=== PATIENT | female | born 1985 | race Two or more races ===

== ENCOUNTER 2024-09-08 23:08 | Emergency (ER) | payer BC ==
[~2024-09-08] VITALS: Ht 152.4 cm; Wt 107.2 kg
[2024-09-08 23:55] LABS: Urine Bacteria None Seen /hpf (None Seen)
[2024-09-08 23:58] LABS: Basophils # (auto) 0 10 ^3/uL (0-0.2); Basophils % (auto) 0.5 % (0.0-2.0); Chloride 107 mmol/L (98-107); Eosinophils # (auto) 0.1 10 ^3/uL (0-0.8); Eosinophils % (auto) 1.1 % (0.0-7.0); Hematocrit 30.5 % (36.0-46.0); Hemoglobin 9.4 g/dL (12.2-16.2); Lymphocytes % (auto) 22.5 % (10.0-50.0); Mean Corpuscular Hemoglobin 22.2 pg (28.0-32.0); Mean Corpuscular Hgb Conc. 30.7 g/dL (32.0-36.0); Mean Corpuscular Volume 72.3 fL (80.0-100.0); Monocytes # (auto) 0.7 10 ^3/uL (0-1.3); Monocytes % (auto) 7.2 % (0.0-12.0); Neutrophils # (auto) 6.3 10 ^3/uL (1.6-8.6); Neutrophils % (auto) 68.7 % (37.0-80.0); Nucleated Red Blood Cells % 0.1 %; Platelet Count (auto) 500 10^3/uL (140-450); Potassium 3.8 mmol/L (3.5-5.1); Red Blood Cells 4.22 10^6/uL (4.0-5.20); Red Cell Distribution Width 17.6 % (11.8-14.3); Sodium 137 mmol/L (136-145); White Blood Cell 9.1 10^3/uL (4.4-10.8)
[2024-09-08 23:59] LABS: Anion Gap 4 (5-15); Carbon Dioxide 26 mmol/L (20-31)
[2024-09-09] LABS: Calcium 9.8 mg/dL (8.7-10.4)
[2024-09-09 00:04] LABS: BUN/Creatinine Ratio 11.9 (10.0-20.0); Blood Urea Nitrogen 8 mg/dL (9-23); Glucose 113 mg/dL (74-106)
[2024-09-09 00:14] LABS: Urine Blood Negative /uL (Negative); Urine Clarity Clear (Clear); Urine Color Light-Yellow (Yellow); Urine Protein, UAD Negative (Negative); Urine Specific Gravity 1.015 (1.001-1.035); Urine Urobilinogen Normal (Negative); Urine WBC 4 /hpf (0 - 5)
--- NOTE | 2024-09-09 00:44 | ED.PDOC ---
GI ASSESSMENT HPI Comments 39-year-old female presents with a chief complaint of abdominal pain x 3 days with associated urinary frequency. Patient states that her abdominal pain is localized to her LLQ/pelvic region, non-radiating, describes as sharp, and rates her pain a 7/10 intermittently. Patient denies any fever, nausea, vomiting, dysuria or diarrhea. Patient denies any injuries or trauma prior to onset of symptoms. Patient also states that she has urinary frequency, but denies dysuria, hematuria, or vaginal bleeding. No other symptoms or modifying factors present at this time. Patient acknowledges she has had this pain intermittently for months, however it has been worse over the past 3 days. Chief Complaint: Abdominal Pain Time Seen by MD: 00:28 Primary Care Provider: None Reviewed Notes: Medications, Allergies Allergies: Coded Allergies: NO KNOWN ALLERGIES (Unverified , 09/08/24) Home Meds Active Scripts Ibuprofen Micronized (Ibuprofen) 800 Mg Tab, 800 MG PO Q8HP PRN, #30 TAB Prov:NICO KELLY MD 09/09/24 Information Source: Patient Mode of Arrival: Ambulatory Timing: Days Duration: Since onset Prehospital treatment: None Quality: Sharp Vomitus: None Stool: Normal Severity: Moderate Recent: None Recent Hx of: None Pain Location: LLQ, Suprapubic Past Medical History Past Medical History (Other): Low Iron Surgical History: TANK CHARGER History: Denies all TANK CHARGER Hx Family History Family History: Reviewed,noncontributory to illness Social History Smoker: Non-Smoker Alcohol: Denies ETOH Use Drugs: Denies Drug Use Lives In: Home Constitutional: denies: chills, diaphoresis, fatigue, fever, malaise, sweats, weakness, others EENTM: denies: blurred vision, double vision, ear bleeding, ear discharge, ear drainage, ear pain, ear ringing, eye pain, eye redness, hearing loss, mouth pain, mouth swelling, nasal discharge, nose bleeding, nose congestion, nose pain, photophobia, tearing, throat pain, throat swelling, voice changes, others Respiratory: denies: cough, hemoptysis, orthopnea, SOB at rest, shortness of breath, SOB with excertion, stridor, wheezing, others Cardiovascular: denies: chest pain, dizzy spells, diaphoresis, Dyspnea on exertion, edema, irregular heart beat, left arm pain, lightheadedness, palpitations, PND, syncope, others Gastrointestinal: reports: abdominal pain; denies: abdomen distended, blood streaked bowels, constipated, diarrhea, dysphagia, difficulty swallowing, hematemesis, melena, nausea, poor appetite, poor fluid intake, rectal bleeding, rectal pain, vomiting, others Genitourinary: reports: frequency; denies: abnormal vagina bleeding, burning, dyspareunia, dysuria, flank pain, hematuria, incontinence, pain, , vagina discharge, urgency, others Neurological: denies: dizziness, fainting, headache, left sided numbness, left sided weakness, numbness, paresthesia, pre-existing deficit, right sided numbness, right sided weakness, seizure, speech problems, tingling, tremors, weakness, others Musculoskeletal: denies: back pain, gout, joint pain, joint swelling, muscle pain, muscle stiffness, neck pain, others Integumetry: denies: bruises, change in color, change in hair/nails, dryness, laceration, lesions, lumps, rash, wounds, others Allergic/Immunocompromised: denies: Difficulty Healing, Frequent Infections, Hives, Itching, others Hematologic/Lymphatic: denies: anemia, blood clots, easy bleeding, easy bruising, swollen glands, others Endocrine: denies: excessive hunger, excessive sweating, excessive thirst, excessive urination, flushing, intolerance to cold, intolerance to heat, unexplained weight gain, unexplained weight loss, others Psychiatric: denies: anxiety, bipolar disorder, depression, hopeless, panic disorder, schizophrenia, sleepless, suicidal, others All Other Systems: Reviewed and Negative Physical Exam General Appearance: No Apparent Distress HEENT: Normal ENT Inspection Neck: Full Range of Motion, Normal Inspection Respiratory: Lungs Clear, No Accessory Muscle Use, No Respiratory Distress, Nor mal Breath Sounds Cardiovascular: No Edema, No JVD, Regular Rate/Rhythm Breast Exam: Deferred Gastrointestinal: Soft, Suprapubic (Left suprapubic tenderness to palpation), Tenderness Genitalia: Deferred Pelvic: Deferred Rectal: Deferred Extremities: Normal inspection, Normal range of motion, Non-tender, No pedal edema Neurologic: Alert, No Motor Deficits, Normal Affect, Normal Mood, No Sensory Deficits Cerebellar Function: NOT DONE Reflexes: NOT DONE Skin: Dry, Normal Color, Warm Lymphatic: NOT DONE Was a procedure done? Was a procedure done?: No GI differential Dx Differential Diagnosis: Bowel Obstruction, Constipation, Diverticular disease, Gastroenteritis, Inflammatory BD, Ischemic Bowel, Urinary Obstruction, UTI, Electrolyte Imbalance, , Bacterial, Parasitic, Viral, Impaction, Kidney Stone Other Differential Diagnosis Ovarian cyst, ovarian torsion, mass lesion, among others X-Ray, Labs, Meds, VS Vital Signs Date Time Temp Pulse Resp B/P (MAP) Pulse Ox O2 Delivery O2 Flow Rate FiO2 09/08/24 23:16 99.5 95 18 163/92 (115) 100 Lab Test 09/08/24 23:53 09/08/24 23:38 Range/Units Urine Color Light-yellow Yellow Urine Clarity Clear Clear Urine pH 7.0 5.0-9.0 Urine Specific [place] 1.015 1.001-1.035 Urine Protein Negative Negative Urine Ketones Negative Negative Urine Blood Negative Negative /uL Urine Nitrite Negative Negative Urine Bilirubin Negative Negative Urine Urobilinogen Normal Negative mg/dL Urine Leukocyte Esterase Negative Negative /uL Urine RBC 1 0 - 4 /hpf Urine WBC 4 0 - 5 /hpf Urine Squamous Epithelial Cells Few <5 /hpf Urine Bacteria None seen None Seen /hpf Urine Glucose Normal Normal mg/dL White Blood Count 9.1 4.4-10.8 10^3/uL Red Blood Count 4.22 4.0-5.20 10^6/uL Hemoglobin 9.4 L 12.2-16.2 g/dL Hematocrit 30.5 L 36.0-46.0 % Mean Corpuscular Volume 72.3 L 80.0-100.0 fL Mean Corpuscular Hemoglobin 22.2 L 28.0-32.0 pg Mean Corpuscular Hemoglobin Concent 30.7 L 32.0-36.0 g/dL Red Cell Distribution Width 17.6 H 11.8-14.3 % Platelet Count 500 H 140-450 10^3/uL Mean Platelet Volume 6.8 L 6.9-10.8 fL Neutrophils (%) (Auto) 68.7 37.0-80.0 % Lymphocytes (%) (Auto) 22.5 10.0-50.0 % Monocytes (%) (Auto) 7.2 0.0-12.0 % Eosinophils (%) (Auto) 1.1 0.0-7.0 % Basophils (%) (Auto) 0.5 0.0-2.0 % Neutrophils # (Auto) 6.3 1.6-8.6 10 ^3/uL Lymphocytes # (Auto) 2.0 0.4-5.4 10 ^3/uL Monocytes # (Auto) 0.7 0-1.3 10 ^3/uL Eosinophils # (Auto) 0.1 0-0.8 10 ^3/uL Basophils # (Auto) 0 0-0.2 10 ^3/uL Nucleated Red Blood Cells 0.1 % Sodium Level 137 136-145 mmol/L Potassium Level 3.8 3.5-5.1 mmol/L Chloride Level 107 98-107 mmol/L Carbon Dioxide Level 26 20-31 mmol/L Anion Gap 4 L 5-15 Blood Urea Nitrogen 8 L 9-23 mg/dL Creatinine 0.67 0.550-1.02 mg/dL Glomerular Filtration Rate Calc 113 >90 mL/min BUN/Creatinine Ratio 11.9 10.0-20.0 Serum Glucose 113 H 74-106 mg/dL Calcium Level 9.8 8.7-10.4 mg/dL Beta HCG, Quantitative 0.5 L 1.5-4.2 mIU/mL PROCEDURE(s): ABPL - CT AB PEL WO CON-NO ORAL OR IV REASON: L suprapubic pain ORDER NUMBER(s): [id number], ACCESSION NUMBER(s): [id number] Examination: ABPL CLINICAL INDICATION: L suprapubic pain COMPARISON: None. CONTRAST USED: None. TECHNIQUE: A plain CT study of the abdomen and pelvis is performed. The ex amination was performed with [address] scan is done according to ALARA (As Low as Reasonably Achievable). Multiplanar reconstructions were obtained. FINDINGS: The lack of intravenous contrast limits evaluation of solid organ and other structures, differentiation/separation and intraluminal evaluation of vessels and ureter from surrounding structures, and evaluation of organ or abnormal enhancement. CT ABDOMEN: Visualized lower thorax: The evaluation of lung bases demonstrates no focal infiltrates or pleural effusion. Unenhanced liver: The liver is normal in size. There is no intrahepatic biliary radicle dilatation. Gallbladder: The gallbladder is normal and reveals no intrinsic abnormality. The common bile duct is not dilated. Unenhanced pancreas: The pancreas is normal in size and shape. No focal lesion is seen within. The peripancreatic fat planes are normal. Unenhanced spleen: The spleen is normal in size and does not show any focal abnormality. Retroperitoneum: Both adrenal glands are normal in size and morphology in this unenhanced CT scan. There is no significant retroperitoneal lymphadenopathy. The kidneys are normal in size with no hydronephrosis or renal calculi. Vessels: The aorta, IVC and the mesenteric vessels cannot be commented in this unenhanced CT scan. Stomach and bowel: Small fat filled umbilical hernia. The bowel loops are unremarkable. There is no ascites. Skeletal system: Sacralization of L5 vertebra on the right side. Otherwise, the visualized thoracolumbar vertebrae and the pelvic bones are unremarkable. CT PELVIS: Appendix: The appendix is unremarkable in appearance. Colon: The ascending, transverse, descending, sigmoid colon and rectum are unremarkable. Urinary bladder: The urinary bladder is partially distended. Pelvic organs: The uterus is normal for age. Well-defined hypodense cystic lesion of approximate size 2.4 x 3 x 2.1 cm noted in the pelvis on the left side, likely left ovarian cystic lesion. Well-defined soft tissue density lesion of approximate size 2.8 x 3.1 x 2.5 cm noted in the cervical canal. Advised further evaluation with MRI pelvis without contrast. No right adnexal mass. No significant pelvic lymphadenopathy is identified. No abnormal fluid collection is seen. IMPRESSION: 1. Well-defined hypodense cystic lesion in the pelvis on the left side, likely left ovarian cystic lesion. 2. Well-defined soft tissue density lesion of approximate size 2.8 x 3.1 x 2.5 cm noted in the cervical canal. 3. Advised further evaluation with MRI pelvis without contrast. 4. No radiopaque calculus in both kidneys, ureters or urinary bladder. 5. No hydronephrosis or hydroureter on either side in current study. 6. No abdominal adenopathy. 7. No ascites. 8. No free air or inflammatory changes. 7. Chronic and/or ancillary findings as described above. Electronically Signed 09/09/2024 02:25 Steven Delacruz EDURE(s): PELUS - PELVIC REASON: LLQ PAIN ORDER NUMBER(s): [id number], ACCESSION NUMBER(s): [id number] Examination: PELUS - TA and TV CLINICAL INDICATION: LLQ pain COMPARISON: None. TECHNIQUE: Transabdominal and transvaginal ultrasound was performed. FINDINGS: Uterus: The uterus is anteverted and enlarged, measuring 11.9 x 4.5 x 5.4 cm. Homogeneous echotexture with the presence of multiple fibroids: Left fibroid measuring 1.5 x 1.8 x 1.8 cm. Larger fibroid on the left side measuring 3.6 x 3.2 x 3.0 cm. Endometrial thickness is 16.5 mm, mildly thickened. A solid mass is identified within the cervix with internal vascularity. Presence of a few nabothian cysts within the cervix. Cervix: Within normal limits except for the solid mass described above. Ovaries: Right Ovary: Measures 1.7 x 2.3 x 1.5 cm with a volume of 3.1 mL. Left Ovary: Measures 2.4 x 1.7 x 2.1 cm with a volume of 4.34 mL. Both ovaries are within normal limits, with no evidence of adnexal mass. Free Fluid: No free fluid is seen in the pelvis. IMPRESSION: 1. Enlarged uterus with multiple fibroids, the largest measuring 3.6 x 3.2 x 3.0 cm. 2. Mildly thickened endometrium measuring 16.5 mm. 3. Solid mass within the cervix with internal vascularity, suggestive of a possible cervical lesion. Suggest further evaluation with MRI of the pelvis without and with intravenous contrast and Pap smear correlation. 4. Presence of multiple nabothian cysts. 5. Both ovaries are within normal limits with no adnexal masses. 6. No evidence of free fluid in the pelvis. Electronically Signed 09/09/2024 02:39 Steven Delacruz X-Ray, Labs, Meds, VS Comment 39-year-old female with a history of low iron complaining of left suprapubic pain Vitals remarkable for BP 163/92 Exam remarkable for left suprapubic tenderness to palpation CT abdomen and pelvis: IMPRESSION: 1. Well-defined hypodense cystic lesion in the pelvis on the left side, likely left ovarian cystic lesion. 2. Well-defined soft tissue density lesion of approximate size 2.8 x 3.1 x 2.5 cm noted in the cervical canal. 3. Advised further evaluation with MRI pelvis without contrast. 4. No radiopaque calculus in both kidneys, ureters or urinary bladder. 5. No hydronephrosis or hydroureter on either side in current study. 6. No abdominal adenopathy. 7. No ascites. 8. No free air or inflammatory changes. 7. Chronic and/or ancillary findings as described above. Pelvic ultrasound: Preliminarily reported by technologist Doppler arterial flow seen to bilateral ovaries Enlarged uterus seen with multiple solid and cystic masses Solid mass at cervix with intravascularly 80 Thickened endometrium Left ovarian simple cyst IMPRESSION: 1. Enlarged uterus with multiple fibroids, the largest measuring 3.6 x 3.2 x 3.0 cm. 2. Mildly thickened endometrium measuring 16.5 mm. 3. Solid mass within the cervix with internal vascularity, suggestive of a possible cervical lesion. Suggest further evaluation with MRI of the pelvis without and with intravenous contrast and Pap smear correlation. 4. Presence of multiple nabothian cysts. 5. Both ovaries are within normal limits with no adnexal masses. 6. No evidence of free fluid in the pelvis. Patient declined any pain medications in the ED, stating she was not in severe pain, just would like to know what was causing the pain. Hospitalization was considered, however the patient has good follow-up with her OBGYN, and she does not want to be hospitalized. She appears stable for outpatient follow-up with her OB for referral for MRI of the pelvis and further evaluation. Rx ibuprofen Time of 1ST Reevaluation: 00:58 Reevaluation 1ST: Unchanged Time of 2ND Reevaluation: 02:46 Reevaluation 2ND: Unchanged Patient Education/Counseling: Diagnosis, Treatment, Prognosis Family Education/Counseling: Diagnosis, Treatment, Prognosis Departure 1 Departure Time of Disposition: 02:46 Impression: Primary Impression: Left ovarian cyst Additional Impression: Cervical mass Disposition: 01 HOME / SELF CARE / HOMELESS Condition: Stable Additional Instructions: Follow-up with your OBGYN in 1-2 days for referral for MRI of the pelvis and further evaluation. e-Prescriptions Ibuprofen Micronized (Ibuprofen) 800 Mg Tab 800 MG PO Q8HP PRN, #30 TAB Prov: NICO KELLY MD 09/09/24 Discharged With: Relative Critical Care Note Critical Care Time?: No Stability Stability form required: No Heart Score Heart Score: Heart Score Response (Comments) Value History N/A 0 EKG N/A 0 Age N/A 0 Risk Factors N/A 0 Troponin N/A 0 Total 0 I personally scribed for NICO KELLY MD ([email or web address]) on 09/09/24 at 00:44. Electronically submitted by Speedy Worthington ([email or web address]). NICO KELLY MD Sep 09, 2024 00:44
--- NOTE | 2024-09-09 02:33 | DVH ---
Examination: ABPL CLINICAL INDICATION: L suprapubic pain COMPARISON: None. CONTRAST USED: None. TECHNIQUE: A plain CT study of the abdomen and pelvis is performed. The examination was performed w ith [address] scan is done according to ALARA (As Low as Reasonably Achievable). Multipl leslye reconstructions were obtained. FINDINGS: The lack of intravenous contrast limits evaluation of solid organ and other structures, differentiati on/separation and intraluminal evaluation of vessels and ureter from surrounding structures, and eval uation of organ or abnormal enhancement. CT ABDOMEN: Visualized lower thorax: The evaluation of lung bases demonstrates no focal infiltrates or pleural e ffusion. Unenhanced liver: The liver is normal in size. There is no intrahepatic biliary radicle dilatation. Gallbladder: The gallbladder is normal and reveals no intrinsic abnormality. The common bile duct is not dilated. Unenhanced pancreas: The pancreas is normal in size and shape. No focal lesion is seen within. The p eripancreatic fat planes are normal. Unenhanced spleen: The spleen is normal in size and does not show any focal abnormality. Retroperitoneum: Both adrenal glands are normal in size and morphology in this unenhanced CT scan. There is no significant retroperitoneal lymphadenopathy. The kidneys are normal in size with no hydro nephrosis or renal calculi. Vessels: The aorta, IVC and the mesenteric vessels cannot be commented in this unenhanced CT scan. Stomach and bowel: Small fat filled umbilical hernia. The bowel loops are unremarkable. There is no a scites. Skeletal system: Sacralization of L5 vertebra on the right side. Otherwise, the visualized thoracolum bar vertebrae and the pelvic bones are unremarkable. CT PELVIS: Appendix: The appendix is unremarkable in appearance. Colon: The ascending, transverse, descending, sigmoid colon and rectum are unremarkable. Urinary bladder: The urinary bladder is partially distended. Pelvic organs: The uterus is normal for age. Well-defined hypodense cystic lesion of approximate size 2.4 x 3 x 2.1 cm noted in the pelvis on the left side, likely left ovarian cystic lesion. Well-defined soft tissue density lesion of approximate size 2.8 x 3.1 x 2.5 cm noted in the cervical canal. Advised further evaluation with MRI pelvis without contrast. No right adnexal mass. No significant pelvic lymphadenopathy is identified. No abnormal fluid collection is seen. IMPRESSION: 1. Well-defined hypodense cystic lesion in the pelvis on the left side, likely left ovarian cystic l esion. 2. Well-defined soft tissue density lesion of approximate size 2.8 x 3.1 x 2.5 cm noted in the cervi saeid canal. 3. Advised further evaluation with MRI pelvis without contrast. 4. No radiopaque calculus in both kidneys, ureters or urinary bladder. 5. No hydronephrosis or hydroureter on either side in current study. 6. No abdominal adenopathy. 7. No ascites. 8. No free air or inflammatory changes. 7. Chronic and/or ancillary findings as described above. Electronically Signed 09/09/2024 02:25 Steven Delacruz
[2024-09-09] MEDS ORDERED: IBUP-1455 PO (02:47)
--- NOTE | 2024-09-09 02:47 | DVH ---
Examination: PELUS - TA and TV CLINICAL INDICATION: LLQ pain COMPARISON: None. TECHNIQUE: Transabdominal and transvaginal ultrasound was performed. FINDINGS: Uterus: The uterus is anteverted and enlarged, measuring 11.9 x 4.5 x 5.4 cm. Homogeneous echotextu re with the presence of multiple fibroids: Left fibroid measuring 1.5 x 1.8 x 1.8 cm. Larger fibroid on the left side measuring 3.6 x 3.2 x 3.0 cm. Endometrial thickness is 16.5 mm, mildly thickened. A solid mass is identified within the cervix with internal vascularity. Presence of a few nabothian cysts within the cervix. Cervix: Within normal limits except for the solid mass described above. Ovaries: Right Ovary: Measures 1.7 x 2.3 x 1.5 cm with a volume of 3.1 mL. Left Ovary: Measures 2.4 x 1.7 x 2.1 cm with a volume of 4.34 mL. Both ovaries are within normal limits, with no evidence of adnexal mass. Free Fluid: No free fluid is seen in the pelvis. IMPRESSION: 1. Enlarged uterus with multiple fibroids, the largest measuring 3.6 x 3.2 x 3.0 cm. 2. Mildly thickened endometrium measuring 16.5 mm. 3. Solid mass within the cervix with internal vascularity, suggestive of a possible cervical lesion. Suggest further evaluation with MRI of the pelvis without and with intravenous contrast and Pap sme ar correlation. 4. Presence of multiple nabothian cysts. 5. Both ovaries are within normal limits with no adnexal masses. 6. No evidence of free fluid in the pelvis. Electronically Signed 09/09/2024 02:39 Steven Delacruz
[2024-09-09 05:14] VITALS: BP 120/80; PULSE 80; RESP 16; TEMP 98.6; O2SAT 97
== END 2024-09-09 05:15 | disposition home or self-care (01) ==
LOC: ER 23:08 → EEVIPCON 23:08 → ER 09-09 05:15
DX: N83.202 Unspecified ovarian cyst, left side (principal); N88.8 Other specified noninflammatory disorders of cervix uteri; Z98.890 Other specified postprocedural states
CPT/HCPCS: 36415; 74176; 76830; 76856; 80048; 81001; 84702; 85025

== ENCOUNTER 2025-03-02 08:14 | Emergency (ER) | payer OTHER ==
[~2025-03-02] VITALS: Ht 152.4 cm; Wt 103.1 kg
[~2025-03-02 08:14] MED LIST: IBUP-1455 PO
[2025-03-02 08:56] VITALS: PULSE 103; RESP 18; O2SAT 100
[2025-03-02] MEDS: SODIUM CHLORIDE 0.9% 1,000 ML IV ONE (09:05)
--- NOTE | 2025-03-02 09:05 | ED.PDOC ---
History of Present Illness HPI Comments 39 year old female presents to the ED with a chief complaint of dizziness onset today (03/02/25) around 07:30. Patient states she was getting ready for work when she began experiencing double vision, dizziness, was trying to walk to her room and was not able to walk straight. Episode lasted about 5 minutes, upon assessment patient states symptoms have resolved. Patient has a PMHx uterine fibroids, anemia. States last LMP was about 12-14 days, longer than normal. Denies headache, dizziness, blurred vision, double vision, chest pain, shortness of breath, weakness, nausea, vomiting. No other symptoms or modifying factors present at this time. Chief Complaint: Dizziness Time Seen by MD: 08:50 Primary Care Provider: none Reviewed Notes: Medications, Allergies Allergies: Coded Allergies: NO KNOWN ALLERGIES (Unverified , 09/08/24) Home Meds Active Scripts Ibuprofen Micronized (Ibuprofen) 800 Mg Tab, 800 MG PO Q8HP PRN, #30 TAB Prov:NICO KELLY MD 09/09/24 Information Source: Patient Mode of Arrival: Ambulatory Severity: Moderate Timing: Hours Duration: Since onset Prehospital treatment: None Past Medical History PAST MEDICAL HISTORY: Anemia Surgical History: CAGE UNLOADER History: Denies all CAGE UNLOADER Hx, Uterine Fibroids Family History Family History: Reviewed,noncontributory to illness Social History Smoker: Non-Smoker Alcohol: Denies ETOH Use Drugs: Denies Drug Use Lives In: Home Constitutional: denies: chills, diaphoresis, fatigue, fever, malaise, sweats, weakness, others EENTM: reports: double vision; denies: blurred vision, ear bleeding, ear discharge, ear drainage, ear pain, ear ringing, eye pain, eye redness, hearing loss, mouth pain, mouth swelling, nasal discharge, nose bleeding, nose congestion, nose pain, photophobia, tearing, throat pain, throat swelling, voice changes, others Respiratory: denies: cough, hemoptysis, orthopnea, SOB at rest, shortness of breath, SOB with excertion, stridor, wheezing, others Cardiovascular: denies: chest pain, dizzy spells, diaphoresis, Dyspnea on exertion, edema, irregular heart beat, left arm pain, lightheadedness, palpitations, PND, syncope, others Gastrointestinal: denies: abdomen distended, abdominal pain, blood streaked bowels, constipated, diarrhea, dysphagia, difficulty swallowing, hematemesis, melena, nausea, poor appetite, poor fluid intake, rectal bleeding, rectal pain, vomiting, others Genitourinary: denies: abnormal vagina bleeding, burning, dyspareunia, dysuria, flank pain, frequency, hematuria, incontinence, pain, , vagina discharge, urgency, others Neurological: reports: dizziness; denies: fainting, headache, left sided numbness, left sided weakness, numbness, paresthesia, pre-existing deficit, right sided numbness, right sided weakness, seizure, speech problems, tingling, tremors, weakness, others Musculoskeletal: denies: back pain, gout, joint pain, joint swelling, muscle pain, muscle stiffness, neck pain, others Integumetry: denies: bruises, change in color, change in hair/nails, dryness, laceration, lesions, lumps, rash, wounds, others Allergic/Immunocompromised: denies: Difficulty Healing, Frequent Infections, Hives, Itching, others Hematologic/Lymphatic: denies: anemia, blood clots, easy bleeding, easy bruising, swollen glands, others Endocrine: denies: excessive hunger, excessive sweating, excessive thirst, excessive urination, flushing, intolerance to cold, intolerance to heat, unexplained weight gain, unexplained weight loss, others Psychiatric: denies: anxiety, bipolar disorder, depression, hopeless, panic disorder, schizophrenia, sleepless, suicidal, others All Other Systems: Reviewed and Negative Physical Exam General Appearance: No Apparent Distress, Normal HEENT: Normal ENT Inspection, Pharynx Normal, TMs Normal Neck: Full Range of Motion, Non-Tender, Normal, Normal Inspection Respiratory: Chest Non-Tender, Lungs Clear, No Accessory Muscle Use, No Respiratory Distress, Normal Breath Sounds Cardiovascular: No Edema, No JVD, No Murmur, No Gallop, Normal Peripheral Pulses, Regular Rate/Rhythm Breast Exam: Deferred Gastrointestinal: No Organomegaly, Non Tender, No Pulsatile Mass, Normal Bowel Sounds, Soft Genitalia: Deferred Pelvic: Deferred Rectal: Deferred Extremities: No calf tenderness, Normal capillary refill, Normal inspection, Normal range of motion, Non-tender, No pedal edema Musculoskeletal : Apperance: Normal Neurologic: Alert, secretary of state II-XII nml as Tested, No Motor Deficits, Normal Affect, Normal Mood, No Sensory Deficits Cerebellar Function: Normal Reflexes: Normal Skin: Dry, Normal Color, Warm Lymphatic: No Adenopathy Was a procedure done? Was a procedure done?: No Differential Dx Considerations may include: CVA, migraine, dehydration, electrolyte abnormality, symptomatic anemia X-Ray, Labs, Meds, VS Vital Signs Date Time Temp Pulse Resp B/P (MAP) Pulse Ox O2 Delivery O2 Flow Rate FiO2 03/02/25 08:56 103 18 100 Room Air* 0 21 03/02/25 08:55 98.7 103 18 161/83 (109) 100 98.7 03/02/25 08:29 97 03/02/25 08:27 98.3 91 19 159/92 (114) 97 98.3 Lab Test 03/02/25 09:53 03/02/25 08:53 03/02/25 08:43 03/02/25 08:22 Range/Units Troponin I High Sensitivity 9 8 </=34 ng/L White Blood Count 7.5 4.4-10.8 10^3/uL Red Blood Count 4.15 4.0-5.20 10^6/uL Hemoglobin 9.0 L 12.2-16.2 g/dL Hematocrit 28.9 L 36.0-46.0 % Mean Corpuscular Volume 69.5 L 80.0-100.0 fL Mean Corpuscular Hemoglobin 21.6 L 28.0-32.0 pg Mean Corpuscular Hemoglobin Concent 31.0 L 32.0-36.0 g/dL Red Cell Distribution Width 18.4 H 11.8-14.3 % Platelet Count 488 H 140-450 10^3/uL Mean Platelet Volume 6.7 L 6.9-10.8 fL Neutrophils (%) (Auto) 77.0 37.0-80.0 % Lymphocytes (%) (Auto) 17.9 10.0-50.0 % Monocytes (%) (Auto) 4.2 0.0-12.0 % Eosinophils (%) (Auto) 0.6 0.0-7.0 % Basophils (%) (Auto) 0.3 0.0-2.0 % Neutrophils # (Auto) 5.8 1.6-8.6 10 ^3/uL Lymphocytes # (Auto) 1.4 0.4-5.4 10 ^3/uL Monocytes # (Auto) 0.3 0-1.3 10 ^3/uL Eosinophils # (Auto) 0 0-0.8 10 ^3/uL Basophils # (Auto) 0 0-0.2 10 ^3/uL Nucleated Red Blood Cells 0.1 % Sodium Level 138 136-145 mmol/L Potassium Level 3.7 3.5-5.1 mmol/L Chloride Level 104 98-107 mmol/L Carbon Dioxide Level 24 20-31 mmol/L Anion Gap 10 5-15 Blood Urea Nitrogen 11 9-23 mg/dL Creatinine 0.62 0.550-1.02 mg/dL Glomerular Filtration Rate Calc 115 >90 mL/min BUN/Creatinine Ratio 17.7 10.0-20.0 Serum Glucose 104 74-106 mg/dL Calcium Level 9.7 8.7-10.4 mg/dL Urine Color Light-yellow Yellow Urine Clarity Clear Clear Urine pH 6.5 5.0-9.0 Urine Specific [place] 1.005 1.001-1.035 Urine Protein Negative Negative Urine Ketones Negative Negative Urine Blood 1+ H Negative /uL Urine Nitrite Negative Negative Urine Bilirubin Negative Negative Urine Urobilinogen Normal Negative mg/dL Urine Leukocyte Esterase 1+ Negative /uL Urine RBC 1 0 - 4 /hpf Urine Microscopic WBC 9 H 0-5 /HPF Urine Squamous Epithelial Cells Few <5 /hpf Urine Bacteria Few H None Seen /hpf Urine Glucose Normal Normal mg/dL Urine Test Negative Negative POC Glucose 90 70-106 mg/dl Current Medications Medications (Trade) Dose Ordered Sig/Margarita Route Start Time Stop Time Status Last Admin Sodium Chloride 1,000 ml @ 1,000 mls/hr Q1H ONCE IV 03/02/25 08:45 03/02/25 09:44 DC 03/02/25 09:[address] [address] Ph: [phone] DIAGNOSTIC IMAGING Diagnostic Imaging Report : [id number] Signed PATIENT: MEG SORIACT: [id number] UNIT: [id number] : 1985 LOC: ER ROOM / BED: / AGE / SEX: 39 / F ADM STATUS: REG ER SERVICE [id number] ORDERING PHYSICIAN: CRESENCIO BLOUNT MD PROCEDURE(s): HWOCT - HEAD WITHOUT CONTRAST REASON: dizziness ORDER NUMBER(s): [id number], ACCESSION NUMBER(s): [id number] EXAM: CT HEAD WITHOUT CONTRAST HISTORY: dizziness COMPARISON: None TECHNIQUE: Axial images of the head were obtained and reformatted in coronal and sagittal planes. All CT scans at this medical facility are performed using dose modulation techniques as appropriate to a performed exam including the following: Automated exposure control was utilized; adjustment of the MA and/or KV according to patient size; and use of iterative reconstruction technique. CT Dose: CTDI volume is 59 mGy. Dose-length product is 1049 mGy*cm FINDINGS: There is no evidence of acute intracranial hemorrhage, mass, mass effect midline shift. There is no hydrocephalus or extra-axial fluid collection. Simpson-white matter differentiation is maintained. The visualized paranasal sinuses and mastoid air cells are clear. The calvarium is intact. IMPRESSION: 1. No acute intracranial process. HS:Y ATED BY: DEVIN TUCKER MD DICTATED DATE/TIME: 03/02/251044 SIGNED BY: DEVIN TUCKER MD SIGNED DATE/TIME: 03/02/251044 CC: Time of 1ST Reevaluation: 09:20 Reevaluation 1ST: Unchanged Patient Education/Counseling: Diagnosis, Treatment, Prognosis Family Education/Counseling: No Family Present Additional Information The following tests were ordered, and results were reviewed by me: EKG, BMP, CBC, UA, TROP -x3, PREGUA, CT HEAD WO CONTRAST I reviewed and agreed with the following test results read by other providers: CT HEAD WO CONTRAST I discussed treatment and results with medical personnel and: patient Comprehensive systems review obtained and negative except for what is stated in the HPI. Departure 1 Departure Time of Disposition: 11:34 (Patient's workup was benign. Including negative head CT and labs. Patient's hemoglobin is 9 which is close to her baseline of 9.4. Patient reports all her symptoms have resolved after receiving fluid and she would like to go home.) Impression: Primary Impression: Dizziness Additional Impression: Dehydration Disposition: 01 HOME / SELF CARE / HOMELESS Condition: Stable Additional Instructions: Your workup today was benign. You can take Tylenol or Motrin as needed for pain. You should follow up with your regular doctor within 1 week. You should stay well rested and well hydrated. If your symptoms worsen or you have any other concerns please return to the emergency room. Discharged With: Self Critical Care Note Critical Care Time?: No Stability Stability form required: No I personally scribed for CRESENCIO BLOUNT MD ([email or web address]) on 03/02/25 at 09:05. Electronically submitted by Yaquelin Ledezma ([email or web address]). I personally scribed for CRESENCIO BLOUNT MD ([email or web address]) on 03/02/25 at 09:13. Electronically submitted by Yaquelin Ledezma ([email or web address]). I personally scribed for CRESENCIO BLOUNT MD ([email or web address]) on 03/02/25 at 11:22. Electronically submitted by Yaquelin Ledezma ([email or web address]). CRESENCIO BLOUNT MD March 02, 2025 09:05
[2025-03-02 09:14] LABS: Basophils # (auto) 0 10 ^3/uL (0-0.2); Monocytes # (auto) 0.3 10 ^3/uL (0-1.3); Neutrophils # (auto) 5.8 10 ^3/uL (1.6-8.6); Nucleated Red Blood Cells % 0.1 %; White Blood Cell 7.5 10^3/uL (4.4-10.8)
[2025-03-02 09:17] LABS: Basophils % (auto) 0.3 % (0.0-2.0); Eosinophils # (auto) 0 10 ^3/uL (0-0.8); Eosinophils % (auto) 0.6 % (0.0-7.0); Hematocrit 28.9 % (36.0-46.0); Lymphocytes # (auto) 1.4 10 ^3/uL (0.4-5.4); Lymphocytes % (auto) 17.9 % (10.0-50.0); Mean Corpuscular Hemoglobin 21.6 pg (28.0-32.0); Mean Corpuscular Volume 69.5 fL (80.0-100.0); Monocytes % (auto) 4.2 % (0.0-12.0); Platelet Count (auto) 488 10^3/uL (140-450); Red Blood Cells 4.15 10^6/uL (4.0-5.20); Red Cell Distribution Width 18.4 % (11.8-14.3)
[2025-03-02 09:21] LABS: Chloride 104 mmol/L (98-107); Potassium 3.7 mmol/L (3.5-5.1); Sodium 138 mmol/L (136-145)
[2025-03-02 09:22] LABS: Anion Gap 10 (5-15); Calcium 9.7 mg/dL (8.7-10.4); Carbon Dioxide 24 mmol/L (20-31)
[2025-03-02 09:27] LABS: BUN/Creatinine Ratio 17.7 (10.0-20.0); Blood Urea Nitrogen 11 mg/dL (9-23); Glucose 104 mg/dL (74-106)
[2025-03-02 10:12] LABS: Urine Bacteria FEW /hpf (None Seen); Urine Blood 1+ /uL (Negative); Urine Clarity Clear (Clear); Urine Protein, UAD Negative (Negative); Urine Specific Gravity 1.005 (1.001-1.035); Urine Squamous Epithelial Cell FEW /hpf (<5); Urine Urobilinogen Normal (Negative); Urine WBC 9 /HPF (0-5); Urine pH 6.5 (5.0-9.0)
[2025-03-02 10:14] LABS: Urine Color Light-Yellow (Yellow)
--- NOTE | 2025-03-02 10:47 | DVH ---
EXAM: CT HEAD WITHOUT CONTRAST HISTORY: dizziness COMPARISON: None TECHNIQUE: Axial images of the head were obtained and reformatted in coronal and sagittal planes. All CT scans at this medical facility are performed using dose modulation techniques as appropriate t o a performed exam including the following: Automated exposure control was utilized; adjustment of th e MA and/or KV according to patient size; and use of iterative reconstruction technique. CT Dose: CTDI volume is 59 mGy. Dose-length product is 1049 mGy*cm FINDINGS: There is no evidence of acute intracranial hemorrhage, mass, mass effect midline shift. There is no h ydrocephalus or extra-axial fluid collection. Simpson-white matter differentiation is maintained. The visualized paranasal sinuses and mastoid air cells are clear. The calvarium is intact. IMPRESSION: 1. No acute intracranial process. HS:Y
[2025-03-02 11:45] VITALS: BP 151/73; PULSE 91; RESP 18; TEMP 98; O2SAT 99
--- NOTE | 2025-03-04 13:57 | ECG ---
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
== END 2025-03-02 11:46 | disposition home or self-care (01) ==
LOC: EEVIPCON 08:14 → ER 08:14
DX: R42 Dizziness and giddiness (principal); E86.0 Dehydration; Z98.890 Other specified postprocedural states
CPT/HCPCS: 36415; 70450; 80048; 81001; 81025; 82947; 84484; 85025; 96360; 99284; J7030; 82962; 93005